=== PATIENT | male | born 1985 | race Caucasian/White ===

== ENCOUNTER 2021-11-28 22:50 | Emergency (ER) | payer SELFPAY ==
[~2021-11-28] VITALS: Ht 180 cm; Wt 86.0 kg
[2021-11-28] MEDS ORDERED: BENZ100C18 PO (23:26)
[2021-11-28] MEDS ORDERED: PRD20T PO (23:26)
--- NOTE | 2021-11-28 23:26 | ED Cough/URI ---
General Chief Complaint: Cough/Cold/Flu Symptoms Stated Complaint: COUGH/TROUBLE BREATHING/FEVER Source: patient Exam Limitations: no limitations History of Present Illness Date Seen by Provider: Nov 28, 2021 Time Seen by Provider: 23:04 Initial Comments Patient ER by private conveyance with chief complaint that for the past 14 days he had a cough and a fever of 100. Has not been using any Tylenol or Motrin for his temperatures. He has not been using anything [id number] for cough. He says his girlfriend was sick with COVID-19 about the same time he started getting sick. He is not seeing a doctor until now because he felt 14 days was a bit excessive. He does not have any other significant medical history. He is not on any antibiotics or steroids. He does not smoke cigarettes. No history of lung disease. Allergies and Home Medications Patient Home Medication List Home Medication List Reviewed: Yes Benzonatate (Tessalon Perles) 100 Mg Capsule, 100 MG PO Q6H PRN for COUGH Prescribed by: IRIS JIMENEZ on 11/28/212325 Prednisone (Prednisone) 20 Mg Tab, 40 MG PO DAILY Prescribed by: IRIS JIMENEZ on 11/28/212325 Review of Systems Review of Systems Constitutional: No chills, No diaphoresis EENTM: No ear discharge, No ear pain Respiratory: cough; No phlegm, No short of breath, No wheezing Cardiovascular: No chest pain, No edema Gastrointestinal: No abdominal pain, No nausea, No vomiting Genitourinary: No discharge, No dysuria Musculoskeletal: No back pain, No joint pain All Other Systems Reviewed Negative Unless Noted: Yes Past Aodopkt-Absksa-Zahlvj Hx Patient Social History Tobacco Use?: No Use of E-Cig and/or Vaping dev: No Substance use?: No Alcohol Use?: No Pt feels they are or have been: No Immunizations Up To Date Influenza Vaccine Up-to-Date: No; Not Current Past Medical History Surgery/Hospitalization HX: DM-2 Physical Exam Vital Signs - First Documented 11/28/21 23:10 Temp 37.0 Pulse 79 Resp 17 B/P (MAP) 128/84 (99) Pulse Ox 99 O2 Delivery Room Air Capillary Refill : Height: '" Weight: lbs. oz. kg; BMI Method: General Appearance: WD/WN, no apparent distress Eyes: Bilateral Eye Normal Inspection, Bilateral Eye PERRL, Bilateral Eye EOMI HEENT: PERRL/EOMI, normal ENT inspection, TMs normal, pharynx normal Neck: full range of motion, supple, normal inspection Respiratory: chest non-tender, lungs clear, no respiratory distress, no accessory muscle use, decreased breath sounds Cardiovascular: normal peripheral pulses, regular rate, rhythm Extremities: normal inspection, no calf tenderness, normal capillary refill Neurologic/Psychiatric: alert, normal mood/affect, oriented x 3 Skin: normal color, warm/dry Progress/Results/Core Measures Suspected Sepsis SIRS Temperature: Pulse: Respiratory Rate: Blood Pressure / Mean: Results/Orders Lab Results Laboratory Tests Test 11/28/21 23:10 Range/Units SARS-CoV-2 RNA (RT-PCR) Detected Negative My Orders Orders - IRIS JIMENEZ Coronavirus Sars-Cov-2 So 2019 (11/28/21 23:13) Influenza A & B Antigens (11/28/21 23:13) Covid 19 Inhouse Test (11/28/21 23:10) Vital Signs/I&O 11/28/21 23:10 Temp 37.0 Pulse 79 Resp 17 B/P (MAP) 128/84 (99) Pulse Ox 99 O2 Delivery Room Air Capillary Refill : Progress Note : Time: 23:23 Progress Note Well-appearing adult male with aseptic vital signs clear lung sounds and oxygen saturation of 98% nonlabored breathing on room air while at rest. We will test him for Covid and influenza and encouraged him to try short course of steroids for bronchitis likely due to COVID-19 given his significant other's exposure. We did discuss imaging risks and benefits and that elective would not show anything with clear sounding lungs and he is okay with skipping it for now. Departure Impression Primary Impression: COVID-19 Disposition: 01 HOME, SELF-CARE Condition: Stable Departure-Patient Inst. Decision time for Depature: 23:34 Patient Instructions: Acute Bronchitis, Adult (DC), COVID-19 (DC), Recovery After COVID-19 Add. Discharge Instructions: I have included a handout on recovery after COVID-19. It is not uncommon for months afterwards to have a cough and malaise. There is not any known treatment specifically to get rid of the symptoms quicker however we may trial a short course of steroids. You may return to work when you are fever free for 24 hours. Tylenol 1000 mg every 8 hours as necessary for fever or body aches. Ibuprofen 800 mg every 8 hours as necessary for fever or body aches. Prednisone 2 tablets every day for the next 5 days to help reduce inflammation in your chest. Humidifiers and vapor rubs such as Vicks or Mentholatum. [id number]-cfl-prirfgg cough medicine such as guaifenesin, Robitussin, DayQuil/NyQuil etc. Tessalon Perles 1 capsule every 6 hours as necessary to suppress cough. Zofran/ondansetron 1 tablet every 6 hours under the tongue as necessary for nausea or vomiting. All discharge instructions reviewed with patient and/or family. Voiced understanding. Scripts Ondansetron (Ondansetron Odt) 4 Mg Tab.rapdis 4 MG PO Q6H PRN for NAUSEA/VOMITING, #8 TAB 0 Refills Prov: IRIS JIMENEZ 11/28/21 Benzonatate (TESSALON PERLES) 100 Mg Capsule 100 MG PO Q6H PRN for COUGH, #20 CAP 0 Refills Prov: IRIS JIMENEZ 11/28/21 Prednisone (Prednisone) 20 Mg Tab 40 MG PO DAILY for 5 Days, #10 TAB 0 Refills Prov: IRIS JIMENEZ 11/28/21 Work/School Note: Work Release Form Date Seen in the Emergency Department: Nov 28, 2021 Return to Work: Nov 30, 2021 Restrictions: Return-No Fever (24hrs) IRIS JIMENEZ Nov 28, 2021 23:26
[2021-11-28 23:40] VITALS: BP 131/85
[2021-11-28] MEDS ORDERED: ONDA4TAB11 PO (23:40)
== END 2021-11-28 23:42 | disposition home or self-care (01) ==
LOC: ER 22:54
DX: U07.1 COVID-19 (principal); E11.9 Type 2 diabetes mellitus without complications
CPT/HCPCS: 87635; 87636; 87804; 99283